=== PATIENT | female | born 1985 | race Hispanic/Latino ===

== ENCOUNTER 2022-06-16 22:02 | Emergency (ER) | payer OTHER ==
[~2022-06-16] VITALS: Ht 167.6 cm; Wt 59.0 kg
== END 2022-06-16 22:32 | disposition home or self-care (01) ==
LOC: ED 22:02
DX: S00.83XA Contusion of other part of head, initial encounter (principal); V49.9XXA Car occupant (driver) (passenger) injured in unspecified traffic accident, initial encounter
CPT/HCPCS: 99283

== ENCOUNTER 2023-08-21 08:28 | Inpatient (IN) | payer OTHER ==
[~2023-08-21] VITALS: Ht 167.6 cm; Wt 86.2 kg
[~2023-08-21 08:28] MED LIST: LIDOCAINE HCL 1% 30 ML SDV INJ ONE
[2023-08-21] MEDS ORDERED: OXYTOCIN/DEXTROSE 5% 20 UNITS/100 ML BAG IV SCH ×2 (10:45→17:45)
[2023-08-21] MEDS ORDERED: CALCIUM CARBONATE 500 MG CHEW PO PRN (10:45)
[2023-08-21] MEDS ORDERED: MAGNESIUM HYDROXIDE/AL HYDROX 30 ML CUP PO PRN (10:45)
[2023-08-21] MEDS ORDERED: LACTATED RINGER'S 1,000 ML IV PRN (10:45)
[2023-08-21 11:16] VITALS: BP 138/92
[2023-08-21 11:26] LABS: AMPHETAMINES, URINE NEGATIVE (NEGATIVE); BARBITURATES, URINE NEGATIVE (NEGATIVE); BENZODIAZEPINE, URINE NEGATIVE (NEGATIVE); BUPRENORPHINE, URINE NEGATIVE (NEGATIVE); CANNABINOID, URINE NEGATIVE (NEGATIVE); COCAINE, URINE NEGATIVE (NEGATIVE); ECSTASY, URINE NEGATIVE (NEGATIVE); FENTANYL, URINE NEGATIVE (NEGATIVE); METHADONE, URINE NEGATIVE (NEGATIVE); OPIATES, URINE NEGATIVE (NEGATIVE); OXYCODONE, URINE NEGATIVE (NEGATIVE); PHENCYCLIDINE, URINE NEGATIVE (NEGATIVE)
[2023-08-21] MEDS ORDERED: miSOPROStoL 25 MCG TAB PV SCH (11:30)
[2023-08-21 11:44] LABS: HEMATOCRIT 35.2 % (35.0-50.0); MCHC 33.9 g/dl (30-36); MCV 85.5 fl (81-99); RBC 4.12 M/ul (4.3-5.7); RDW 14.5 (10.5-15.0)
[2023-08-21 12:24] LABS: ABO O; RH POSITIVE
[2023-08-21 12:26] LABS: ANTIBODY SCREEN NEGATIVE
[2023-08-21] MEDS ORDERED: PENICILLIN G POTASSIUM 5 MUNITS/110 ML PIGGYBACK IV ONE ×2 (15:00→18:00)
--- NOTE | 2023-08-21 17:46 | PR ---
[facility] [address] [place], [place] [address] Signed Progress Notes IP Datetime Report Generated by CPN: 08/21/2023 17:46 PROGRESS NOTES: [id number] Impression: Normal Progression of Labor; Reassuring Heart Rate Procedures: Sterile Vag Exam Plan: Continue Present Management VITAL SIGNS: [id number] Vital Signs: Reviewed VS Notable Details: mild HTN EXAM: [id number] Dilatation: 1.0 Effacement: 80 Station: -2 Contractions: q 1 to 3 min MEMBRANES: [id number] Membranes Status: Intact Comments: Starting to feel the contractions but still mild. Has made good progress. Will continue. FETUS A: [id number] FHR Baseline: 145 Variability: Moderate 6-25bpm Accelerations: 15X15 Decelerations: None FHR Category: Category I Presentation: Vertex FETUS B: [id number] Signing Physician: Esperanza Navarro MD Copies: ~ *Electronically Signed* 08/21/23 1746 ESPERANZA NAVARRO MD PATIENT NAME: GERMAINE GOEL PROGRESS NOTE DATE OF : 85 PHYSICIAN: ESPERANZA NAVARRO MD RPT #: [id number] REPORT IS CONFIDENTIAL AND NOT TO BE RELEASED WITHOUT AUTHORIZATION
[2023-08-21] MEDS ORDERED: PENICILLIN G POTASSIUM 5 MUNITS/110 ML PIGGYBACK IV SCH (18:00)
[2023-08-21] MEDS ORDERED: PENICILLIN G POTASSIUM 2.5 MUNITS in DEXTROSE 5% 100 ML IV SCH ×2 (18:00→22:00)
--- NOTE | 2023-08-21 20:01 | PR ---
[facility] [address] [facility] [place], [place] [address] Signed Progress Notes IP Datetime Report Generated by CAROLYN: 08/21/2023 20:01 PROGRESS NOTES: [id number] Impression: Reassuring Heart Rate Procedures: Artificial ROM; Sterile Vag Exam Plan: Continue Present Management VITAL SIGNS: [id number] Vital Signs: Reviewed VS Notable Details: mild HTN EXAM: [id number] Dilatation: 1.5 Effacement: 80 Station: -2 Contractions: q 2 to 3 min MEMBRANES: [id number] Membranes Status: Intact Comments: Getting more uncomfortable. Will continue. FETUS A: [id number] FHR Baseline: 145 Variability: Moderate 6-25bpm Accelerations: 15X15 Decelerations: None FHR Category: Category I Presentation: Vertex FETUS B: [id number] Signing Physician: Esperanza Navarro MD Copies: ~ *Electronically Signed* 08/21/232000 ESPERANZA NAVARRO MD PATIENT NAME: GERMAINE GOEL PROGRESS NOTE DATE OF : 85 PHYSICIAN: ESPERANZA NAVARRO MD RPT #: [id number] REPORT IS CONFIDENTIAL AND NOT TO BE RELEASED WITHOUT AUTHORIZATION
[2023-08-22] MEDS ORDERED: MAGNESIUM HYDROXIDE/AL HYDROX 30 ML CUP PO PRN (01:30)
[2023-08-22] MEDS ORDERED: LIDOCAINE 2% VISCOUS 6 ML SYR TOP ONE ×2 (01:30)
[2023-08-22] MEDS ORDERED: OXYTOCIN/0.9 % SODIUM CHLORIDE 500 ML IV SCH (01:30)
[2023-08-22] MEDS ORDERED: MAGNESIUM HYDROXIDE 30 ML UDC PO PRN (01:30)
[2023-08-22] MEDS ORDERED: CALCIUM CARBONATE 500 MG CHEW PO PRN (01:30)
[2023-08-22] MEDS ORDERED: ACETAMINOPHEN 325 MG TAB PO PRN (01:30)
[2023-08-22] MEDS ORDERED: IBUPROFEN 600 MG TAB PO PRN (01:30)
[2023-08-22] MEDS ORDERED: HYDROCORTISONE ACETATE 25 MG SUPP PR PRN (01:30)
[2023-08-22] MEDS ORDERED: HYDROCODONE/ACETA 5/325 TAB PO PRN (01:30)
[2023-08-22] MEDS ORDERED: WITCH HAZEL/GLYCERIN 1 EA PAD TOP PRN (01:30)
[2023-08-22] MEDS ORDERED: BENZOCAINE 60 ML AEROSOL TOP PRN (01:30)
[2023-08-22 05:59] LABS: ALBUMIN 2.3 g/dL (3.4-5.0); ALBUMIN/GLOBULIN RATIO 0.68 (1.1-2.4); ANION GAP 14.2 (7-21); BILIRUBIN, TOTAL 0.4 ng/dL (0.2-1.0); BUN/CREATININE RATIO 10.89 (6.0-28.6); CALCIUM 8.1 mg/dL (8.5-10.1); CREATININE, SERUM 1.01 mg/dL (0.55-1.02); POTASSIUM 4.2 mmol/L (3.5-5.1); PROTEIN, TOTAL 5.7 g/dL (6.4-8.2)
[2023-08-22] MEDS ORDERED: ENOXAPARIN SODIUM 40 MG/0.4 ML SYR SUB-Q SCH (09:00)
[2023-08-22] MEDS ORDERED: SENNOSIDES/DOCUSATE 1 EA TAB PO SCH (09:00)
[2023-08-23 05:27] LABS: HEMATOCRIT 26.2 % (35.0-50.0); HEMOGLOBIN 8.7 g/dL (12.0-18.0); MCH 28.6 (27-36); MCHC 33.2 g/dl (30-36); MCV 86.4 fl (81-99); RBC 3.04 M/ul (4.3-5.7); RDW 14.8 (10.5-15.0)
--- NOTE | 2023-08-23 08:31 | PR ---
[facility] [address] [facility] [place], [place] [address] Signed PP Progress Notes Datetime Report Generated by CAROLYN: 08/23/2023 08:32 SUBJECTIVE: [id number] Pain: Within Normal Limits Nausea/Vomiting: Denies Vital Signs: [id number] Vital Signs: Reviewed; Within Normal Limits EXAM: Ongoing Cardiovascular: Not Done Respiratory: Not Done Abdomen/Uterus: Abnormal Lochia: Normal Vulva/Perineum: Not Done Breasts: Not Done CVA Tenderness: Not Done Extremities: Normal Progress: Normal Exam Comments: Fundus firm, NT @ U-2 H/H 8.7/26.2, WBC 17.2, plat 200k IMPRESSION/PLAN/PROCEDURES: [id number] Impression: Normal Progression; Induced Hypertension Other Impression: anemia Plan: Discharge Progress Notes: Doing well. She is tolerating the anemia so far. Her BPs have improved as well. I feel she is stable for D/C. Signing Physician: Esperanza Navarro MD Copies: ~ *Electronically Signed* 08/23/23 0832 ESPERANZA NAVARRO MD PATIENT NAME: GERMAINE GOEL PROGRESS NOTE DATE OF : 85 PHYSICIAN: ESPERANZA NAVARRO MD RPT #: [id number] REPORT IS CONFIDENTIAL AND NOT TO BE RELEASED WITHOUT AUTHORIZATION
== END 2023-08-23 15:05 | disposition home or self-care (01) | DRG 807 ==
LOC: FBCO 08:28 → FBC 10:35
PROVIDERS: ADMIT Obstetrics & Gynecology; ATTEND Obstetrics & Gynecology
PROC: 10E0XZZ Delivery of Products of Conception, External Approach (ICD-10-PCS; principal; 2023-08-21)
PROC: 0KQM0ZZ Repair Perineum Muscle, Open Approach (ICD-10-PCS; 2023-08-21)
PROC: 10907ZC Drainage of Amniotic Fluid, Therapeutic from Products of Conception, Via Natural or Artificial Opening (ICD-10-PCS; 2023-08-21)
DX: O48.0 Post-term pregnancy (principal); Z37.0 Single live birth; Z3A.41 41 weeks gestation of pregnancy; O70.1 Second degree perineal laceration during delivery; O99.824 Streptococcus B carrier state complicating childbirth; O69.81X0 Labor and delivery complicated by cord around neck, without compression, not applicable or unspecified; O77.0 Labor and delivery complicated by meconium in amniotic fluid; O16.5 Unspecified maternal hypertension, complicating the puerperium
CPT/HCPCS: 36415; 76818; 80053; 80307; 84550; 85027; 86850; 86900; 86901; A9270; J1650; J2540; J2590; J7121